=== PATIENT | male | born 1950 | race Caucasian/White ===

== ENCOUNTER → 2017-03-19 | Day surgery (SDC) | payer OTHER ==
[~2017-03-19] VITALS: Ht 170.2 cm; Wt 61.2 kg
[~2017-03-19] MED LIST: 0.9% Sodium Chloride 1,000 ML IV PRN; MULT1CAP33 PO; OMEG500C PO; Sodium Chloride LOK Flush 10 mL Syringe IV PRN; fentaNYL-PF 50 mCg/mL 2 mL Inj IVPUSH PRN
[2017-03-19 10:46] VITALS: BP 124/72; PULSE 69; RESP 16; O2SAT 98
--- NOTE | 2017-03-19 11:31 | PCM.ENDCOL ---
Colonoscopy Date of Service: Mar 19, 2017 Physician Tano Parson MD Pre Procedure Diagnosis: Blood in the stools Post Procedure Dx & Findings: Hemorrhoids Procedure Colonoscopy PROCEDURE IN DETAIL: Prep adequate Withdrawal time 10 minutes After unremarkable rectal examination the Olympus video colonoscope was inserted patient's anal canal and was advanced to cecum. Landmarks were identified including the ileocecal valve and appendiceal orifice. Scope was withdrawn systematically. Visualized colonic mucosa showed healthy shiny mucosa with normal healthy-appearing vasculature. In the rectum retroflexion was done which showed hemorrhoids. Anal canal was inspected carefully on the way out and hemorrhoids noted. Impression Hemorrhoids Recommendation Repeat colonoscopy in 10 years if there is no personal or family history of colon cancer or polyp. If so repeat in 5 years. Presedation Assessment Risks and Benefits Informed consent was obtained from the patient after all risks and benefits including but not limited to drug reaction, infection, pain, bleeding, perforation, as well as alternatives were discussed. Patient monitoring Continuous pulse oximetry, cardiac monitoring, blood pressure monitoring, IV access, and oxygen at 2L per nasal cannula. Periprocedural Fentanyl: Fentanyl 100mcg Incrementally Midazolam: Midazolam 4mg Incrementally Complications There were no periprocedural complications identified. Post Procedure Plan Post Procedure Recommendations 1. Restrict activities today. 2. Resume normal activities in the morning. 3. Resume medications. 4. Patient informed of normal post procedure side effects as bloating, drowsiness, blood streaking in the stool. 5. average risk CRCS. If colon polyps come back as: -Hyperplastic- can repeat colonoscopy in 10 years -Tubular adenoma- repeat colonoscopy in 5 years -Tubulovillous/villous adenoma- repeat colonoscopy in 3 years -If any dysplasia- return to clinic as soon as possible 6. Please don't hesitate to call me with any questions. Tano Parson MD Mar 19, 2017 11:31
[2017-03-19 11:35] VITALS: BP 120/69; PULSE 53; RESP 14; O2SAT 97
[2017-03-19 11:42] VITALS: BP 113/67; PULSE 56; RESP 12; O2SAT 97
[2017-03-19 11:56] VITALS: BP 112/67; PULSE 58; RESP 12; O2SAT 99
== END | disposition home or self-care (01) ==
LOC: END 00:06
PROVIDERS: ATTEND Internal Medicine
DX: K92.1 Melena (principal); K64.8 Other hemorrhoids; Z80.0 Family history of malignant neoplasm of digestive organs
CPT/HCPCS: 45378; 99153; G0500; J2250; J3010; J7030